=== PATIENT | female | born 1995 | race Caucasian/White ===

== ENCOUNTER 2017-10-29 18:35 | Emergency (ER) | payer MEDICAID ==
--- NOTE | 2017-10-29 19:05 | EDPHY ---
H & P Time Seen by Provider: 10/29/17 18:54 HPI/ROS: CHIEF COMPLAINT: Cough, fever, exposure to TB HISTORY OF PRESENT ILLNESS: The patient is a 22-year-old female who comes to the emergency department with her boyfriend. She has been coughing and having night sweats for the last 2-3 weeks. Her boyfriend has as well. He had a blood test done yesterday they came back positive for TB. They are both treated at the [facility] where the test was performed. No rash. No weight loss. No shortness of breath. Denies risk of . Denies history of HIV. She had a blood test as well for TB and hers was negative. Severity: Moderate Modifying factors: None REVIEW OF SYSTEMS: Constitutional: See HPI EENTM: denies: blurred vision, double vision, nose congestion Respiratory: See HPI Cardiac: denies: chest pain, irregular heart rate, lightheadedness, palpitations Gastrointestinal/Abdominal: denies: abdominal pain, diarrhea, nausea, vomiting, blood streaked stools Genitourinary: denies: dysuria, frequency, hematuria, pain Musculoskeletal: denies: joint pain, muscle pain Skin: denies: lesions, rash, jaundice, bruising Neurological: denies: headache, numbness, paresthesia, tingling, dizziness, weakness Hematologic/Lymphatic: denies: blood clots, easy bleeding, easy bruising Immunologic/allergic: denies: HIV/AIDS, transplant 10 systems reviewed and negative except as noted EXAM: GENERAL: Well-appearing, well-nourished and in no acute distress. HEAD: Atraumatic, normocephalic. EYES: Pupils equal round and reactive to light, extraocular movements intact, sclera anicteric, conjunctiva are normal. ENT: TMs normal, nares patent, oropharynx clear without exudates. Moist mucous membranes. NECK: Normal range of motion, supple without lymphadenopathy or JVD. LUNGS: Breath sounds clear to auscultation bilaterally and equal. No wheezes rales or rhonchi. HEART: Regular rate and rhythm without murmurs, rubs or gallops. ABDOMEN: Soft, nontender, normoactive bowel sounds. No guarding, no rebound. No masses appreciated. BACK: No CVA tenderness, no spinal tenderness, step-offs or deformities EXTREMITIES: Normal range of motion, no pitting or edema. No clubbing or cyanosis. NEUROLOGICAL: Cranial nerves II through XII grossly intact. Normal speech, normal gait. 5/5 strength, normal movement in all extremities, normal sensation , normal reflexes PSYCH: Normal mood, normal affect. SKIN: Warm, dry, normal turgor, no visible rashes or lesions. Source: Patient Exam Limitations: No limitations - Personal History Tetanus Vaccine Date: 03/15/2015 - Medical/Surgical History Hx Asthma: No Hx Chronic Respiratory Disease: No Hx Diabetes: No Hx Cardiac Disease: No Hx Renal Disease: No Hx Cirrhosis: No Hx Alcoholism: No Hx HIV/AIDS: No Hx Splenectomy or Spleen Trauma: No Other PMH: Scars on left arm from cutting - years ago - Family History Significant Family History: No pertinent family hx - Social History Smoking Status: Never smoked Alcohol Use: Sober Drug Use: Other Constitutional: Initial Vital Signs Temperature (C) 36.7 C 10/29/17 19:01 Heart Rate 88 10/29/17 19:01 Respiratory Rate 16 10/29/17 19:01 Blood Pressure 126/83 H 10/29/17 19:01 O2 Sat (%) 97 10/29/17 19:01 O2 Delivery Mode Room Air Allergies/Adverse Reactions: No Known Allergies Allergy (Verified 01/10/16 15:37) Home Medications: Medication Instructions Recorded Doxycycline Hyclate 10/29/17 Methadone HCl 10/29/17 Medical Decision Making - Diagnostics Imaging Results: Imaging Impressions Chest X-Ray 10/29/17 18:55 IMPRESSION: Normal chest x-ray. Imaging: Discussed imaging studies w/ superintendent house Radiologist ED Course/Re-evaluation: 7:20 p.m. I discussed the case with Dr. Tammy Diez. She states that the patient does not have TB and does not need to be treated. She likely has a viral bronchitis and should follow up with her PCP in the next few days. Discussed this the patient is reassured. She was frustrated that she was sent here. Differential Diagnosis: Partial list of the Differential diagnosis considered include but were not limited to; tuberculosis, pneumonia, bronchitis, asthma and although unlikely based on the history and physical exam, I also considered sepsis. I discussed these differential diagnoses and the plan with the patient as well as the usual and expected course. The patient understands that the diagnosis is provisional and that in medicine we are not always correct and that further workup is often warranted. Usual and customary warnings were given. All of the patient's questions were answered. The patient was instructed to return to the emergency department should the symptoms at all worsen or return, otherwise to followup with the physician as we discussed. Departure - Departure Disposition: Home, Routine, Self-Care Clinical Impression: Acute bronchitis Qualifiers: Bronchitis organism: unspecified organism Qualified Code(s): J20.9 - Acute bronchitis, unspecified Condition: Fair Instructions: Acute Bronchitis (ED) Referrals: NONE *PRIMARY CARE P,. [Primary Care Provider] - As per Instructions Mahesh Reeves MD [Medical Doctor] - As per Instructions
[2017-10-29 19:06] VITALS: BP 126/83
== END 2017-10-29 19:34 | disposition home or self-care (01) ==
LOC: CED 18:35
DX: J20.9 Acute bronchitis, unspecified (principal)
CPT/HCPCS: 71046-PO